=== PATIENT | male | born 1990 | race Caucasian/White ===

== ENCOUNTER 2019-07-23 13:33 | Emergency (ER) | payer OTHER, SELFPAY ==
[2019-07-23 13:33] VITALS: BP 142/84; PULSE 75; RESP 16; TEMP 37.1; O2SAT 97
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
== END 2019-07-23 14:12 | disposition home or self-care (01) ==
PROVIDERS: Emergency Provider Physician Assistant
DX: M54.2 Cervicalgia (principal); G89.29 Other chronic pain; V43.53XA Car driver injured in collision with pick-up truck in traffic accident, initial encounter
CPT/HCPCS: 99283

== ENCOUNTER 2019-10-20 14:55 | Outpatient (CLI) | payer OTHER, SELFPAY ==
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
== END 2019-10-20 15:15 ==
PROVIDERS: Visit Provider Nurse Practitioner Family
DX: M25.571 Pain in right ankle and joints of right foot (principal); R26.2 Difficulty in walking, not elsewhere classified
CPT/HCPCS: 73610